=== PATIENT | female | born 1985 | race African-American/Black ===

== ENCOUNTER 2016-12-03 06:42 | Inpatient (IN) | payer OTHER ==
[2016-12-03] MEDS ORDERED: NUBAIN INJ 200 MG VIAL MULTIDOSE IVP PRN (06:44)
[2016-12-03] MEDS ORDERED: PITOCIN IVP ONE (06:44)
[2016-12-03] MEDS ORDERED: PITOCIN 10 UNITS in D5 LR 1000 ML 1,000 ML IV PRN (06:44)
[2016-12-03] MEDS ORDERED: REGLAN INJ 10 MG VIAL IVP PRN (06:44)
[2016-12-03] MEDS ORDERED: DILAUDID INJ IVP PRN (06:44)
[2016-12-03] MEDS ORDERED: PHENERGAN INJ 25 MG IV PRN ×2 (06:44→20:13)
[2016-12-03] MEDS ORDERED: D5LR 1000ML W PITOCIN 10 U/L 1,000 ML IV ONE (06:50)
[2016-12-03] MEDS ORDERED: D5 1/2 NS 1000 ML 1,000 ML IV ONE (06:51)
[2016-12-03] MEDS ORDERED: PITOCIN ONE (06:51)
[2016-12-03] MEDS ORDERED: D5 1/2 NS 1000ML W PITOCIN 20 U/L 1,000 ML IV ONE (06:51)
[2016-12-03] MEDS: D5 1/2 NS 1000 ML 1,000 ML IV SCH ×3 (07:10→23:01)
[2016-12-03 07:25] LABS: BASOPHILS % (AUTO) 0.4 % (0.2-1.0); EOSINOPHILS # (AUTO) 0.1 x10^3/uL (0.0-0.2); EOSINOPHILS % (AUTO) 0.6 % (0.9-2.9); HEMATOCRIT 37.9 % (36.0-47.0); HEMOGLOBIN 13.1 g/dL (12.0-16.0); MEAN CORPUSCULAR HEMOGLOBIN 27.8 pg (27.0-34.0); MEAN CORPUSCULAR HGB CONC 34.4 g/dL (33.0-35.0); MEAN CORPUSCULAR VOLUME 80.8 fL (80.0-100.0); MEAN PLATELET VOLUME 7.3 fL (7.4-11.0); MONOCYTES # (AUTO) 0.6 x10^3/uL (0.3-0.8); MONOCYTES % (AUTO) 5.9 % (0.0-13.0); NEUTROPHILS # (AUTO) 8.2 x10^3/uL (2.2-4.8); NEUTROPHILS % (AUTO) 75.1 % (42.0-75.0); PLATELET COUNT 288 X10^3/uL (150.0-450.0); RED BLOOD COUNT 4.69 X10^6/uL (3.5-5.4); RED CELL DISTRIBUTION WIDTH 14.6 % (11.6-16.5); WHITE BLOOD COUNT 10.9 X10^3/uL (3.6-10.0)
[2016-12-03 07:28] LABS: BLOOD UREA NITROGEN 6 mg/dL (7-18); CALCIUM 8.6 mg/dL (8.5-10.1); CARBON DIOXIDE 23.4 mmol/L (21-32); CHLORIDE 105 mmol/L (98-107); CREATININE 0.69 mg/dL (0.55-1.02); GLUCOSE 94 mg/dL (65-99); SODIUM 139 mmol/L (136-145); eGFR BLACK RACES > 60 (>60); eGFR NON BLACK RACES > 60 (>60)
[2016-12-03 07:29] LABS: BILIRUBIN,URINE NEGATIVE (NEGATIVE); BLOOD/HEMOGLOBIN,URINE 1+ (NEGATIVE); GLUCOSE, URINE NEGATIVE (NEGATIVE); KETONES,URINE NEGATIVE (NEGATIVE); LEUKOCYTE ESTERASE ,URINE 2+ (NEGATIVE); NITRITES,URINE NEGATIVE (NEGATIVE); PROTEIN,URINE 1+ (NEGATIVE); UROBILINOGEN,URINE NORMAL (NORMAL)
[2016-12-03 07:37] LABS: APPEARANCE,URINE CLEAR (CLEAR); COLOR,URINE YELLOW (YELLOW)
[2016-12-03 07:38] LABS: BACTERIA,URINE TRACE /HPF (NEGATIVE); RBC,URINE 0-3 /HPF (NEGATIVE); SQUAMOUS EPITHELIAL CELL,UR MODERATE /HPF (NEGATIVE)
--- NOTE | 2016-12-03 10:06 | NB.PROG ---
[facility] Progress Note - History of Present Illness History of Present Illness: thriving - Information Weight: 277 lb - [facility] Blood Type: B+ Rubella Status: Immune HIV Status: Negative Group B Strep Status: Negative - Physical Exam Vital Signs: Temperature 98.0 F Pulse Rate [Left Brachial] 88 Respiratory Rate 18 Blood Pressure [Left Arm] 132/72 Blood Pressure 119/88 [facility] Physical Exam: Head: Normal, Palate: Normal, Fundoscopic: Normal, EENT: Normal, Neck: Normal, Nodes: Normal, Chest: Normal, Cardiac: Normal, Pulses: Normal, Abdominal: Normal, Genitourinary: Normal, Skin: Normal, Musculoskeletal : Normal, Neurological: Normal, Hips: Normal - Review of Results Laboratory: WBC 10.9 X10^3/uL (3.6-10.0) H 12/03/16 07:08 RBC 4.69 X10^6/uL (3.5-5.4) 12/03/16 07:08 Hgb 13.1 g/dL (12.0-16.0) 12/03/16 07:08 Hct 37.9 % (36.0-47.0) 12/03/16 07:08 MCV 80.8 fL (80.0-100.0) 12/03/16 07:08 MCH 27.8 pg (27.0-34.0) 12/03/16 07:08 MCHC 34.4 g/dL (33.0-35.0) 12/03/16 07:08 RDW 14.6 % (11.6-16.5) 12/03/16 07:08 Plt Count 288 X10^3/uL (150.0-450.0) 12/03/16 07:08 MPV 7.3 fL (7.4-11.0) L 12/03/16 07:08 Neut % 75.1 % (42.0-75.0) H 12/03/16 07:08 Lymph % 18.0 % (21.0-51.0) L 12/03/16 07:08 [place] % 5.9 % (0.0-13.0) 12/03/16 07:08 Eos % 0.6 % (0.9-2.9) L 12/03/16 07:08 Baso % 0.4 % (0.2-1.0) 12/03/16 07:08 Neut # 8.2 x10^3/uL (2.2-4.8) H 12/03/16 07:08 Lymph # 2.0 X10^3/uL (1.3-2.9) 12/03/16 07:08 [place] # 0.6 x10^3/uL (0.3-0.8) 12/03/16 07:08 Eos # 0.1 x10^3/uL (0.0-0.2) 12/03/16 07:08 Baso # 0.0 X10^3/uL (0.0-0.1) 12/03/16 07:08 Absolute Nucleated RBC 0.0 /100WBC 12/03/16 07:08 Sodium 139 mmol/L (136-145) 12/03/16 07:08 Corrected Sodium TNP 12/03/16 07:08 Potassium 4.3 mmol/L (3.5-5.1) 12/03/16 07:08 Chloride 105 mmol/L (98-107) 12/03/16 07:08 Carbon Dioxide 23.4 mmol/L (21-32) 12/03/16 07:08 BUN 6 mg/dL (7-18) L 12/03/16 07:08 Creatinine 0.69 mg/dL (0.55-1.02) 12/03/16 07:08 Est GFR (MDRD) Af Amer > 60 (>60) 12/03/16 07:08 Est GFR (MDRD) Non-Af > 60 (>60) 12/03/16 07:08 Glucose 94 mg/dL (65-99) 12/03/16 07:08 Calcium 8.6 mg/dL (8.5-10.1) 12/03/16 07:08 Specimen Type Clean catch urine 12/03/16 07:05 Urine Color Yellow (YELLOW) 12/03/16 07:05 Urine Appearance Clear (CLEAR) 12/03/16 07:05 Urine pH 7.0 (5.0 - 8.0) 12/03/16 07:05 Ur Specific [place] 1.010 (1.000-1.030) 12/03/16 07:05 Urine Protein 1+ (NEGATIVE) 12/03/16 07:05 Urine Glucose (UA) Negative (NEGATIVE) 12/03/16 07:05 Urine Ketones Negative (NEGATIVE) 12/03/16 07:05 Urine Occult Blood 1+ (NEGATIVE) 12/03/16 07:05 Urine Nitrite Negative (NEGATIVE) 12/03/16 07:05 Urine Bilirubin Negative (NEGATIVE) 12/03/16 07:05 Urine Urobilinogen Normal (NORMAL) 12/03/16 07:05 Ur Leukocyte Esterase 2+ (NEGATIVE) 12/03/16 07:05 Urine RBC 0-3 /HPF (NEGATIVE) 12/03/16 07:05 Urine WBC 2-5 /HPF (NEGATIVE) 12/03/16 07:05 Ur Squamous Epith Cells Moderate /HPF (NEGATIVE) 12/03/16 07:05 Urine Bacteria Trace /HPF (NEGATIVE) 12/03/16 07:05 Ur Culture Indicated? No/not indicated 12/03/16 07:05 RPR Nonreactive (NONREACTIVE) 12/03/16 07:08 Blood Type B POSITIVE 12/03/16 07:08 Antibody Screen Negative 12/03/16 07:08
[2016-12-03] MEDS ORDERED: FENTANYL INJ 100 mcg EPI ONE (10:26)
[2016-12-03] MEDS ORDERED: LR 1000 ML IV 1,000 ML IV ONE (10:26)
[2016-12-03] MEDS ORDERED: NAROPIN EPIDURAL 0.2% 60 ML with FENTANYL INJ 100 mcg 90 MCG IVP SCH ×2 (11:00)
[2016-12-03] MEDS ORDERED: NAROPIN EPIDURAL 0.2% + FENTANYL 90MCG EPI SCH (11:00)
[2016-12-03] MEDS ORDERED: NAROPIN EPIDURAL 0.2% + FENTANYL 90MCG 60 ML EPI ONE (16:30)
[2016-12-03] MEDS ORDERED: REGLAN INJ 10 MG VIAL ONE (17:49)
[2016-12-03] MEDS ORDERED: MOTRIN TAB 800 MG PO PRN (20:13)
[2016-12-03] MEDS ORDERED: D5 1/2 NS 1000 ML 1,000 ML with PITOCIN 20 UNITS IV SCH ×2 (21:00)
[2016-12-03] MEDS ORDERED: NS 1000 ML 1,000 ML IV ONE (21:04)
[2016-12-03] MEDS ORDERED: DERMOPLAST SPRAY TOP PRN (21:26)
[2016-12-03] MEDS ORDERED: AMBIEN PO PRN (21:26)
[2016-12-03] MEDS ORDERED: MILK OF MAGNESIA PO PRN (21:26)
[2016-12-03] MEDS ORDERED: NS 1000 ML 1,000 ML ONE (21:27)
[2016-12-03] MEDS: MOTRIN TAB 800 MG PO PRN (22:00)
[2016-12-03] MEDS: ZANTAC PO SCH (22:08)
[2016-12-04] MEDS ORDERED: D5 1/2 NS 1000 ML 1,000 ML with PITOCIN 20 UNITS IV SCH ×2 (05:00)
[2016-12-04] MEDS: D5 1/2 NS 1000 ML 1,000 ML IV SCH (06:09)
[2016-12-04 06:32] LABS: HEMATOCRIT 29.8 % (36.0-47.0); HEMOGLOBIN 10.1 g/dL (12.0-16.0)
[2016-12-04] MEDS: ZANTAC PO SCH ×2 (09:19→20:02)
[2016-12-04] MEDS: PRENATAL PLUS PO SCH (09:19)
[2016-12-04] MEDS: MOTRIN TAB 800 MG PO PRN ×2 (11:32→20:03)
[2016-12-05 07:42] VITALS: BP 112/57
[2016-12-05] MEDS: ZANTAC PO SCH (08:32)
[2016-12-05] MEDS: PRENATAL PLUS PO SCH (08:32)
[2016-12-05] MEDS: MOTRIN TAB 800 MG PO PRN (10:47)
== END 2016-12-05 12:00 | disposition home or self-care (01) | DRG 775 ==
LOC: LD 06:42 → MED/SURG 21:35
PROVIDERS: ADMIT Obstetrics & Gynecology Obstetrics; ATTEND Obstetrics & Gynecology Obstetrics
PROC: 10E0XZZ Delivery of Products of Conception, External Approach (ICD-10-PCS; principal; 2016-12-03)
PROC: 10907ZC Drainage of Amniotic Fluid, Therapeutic from Products of Conception, Via Natural or Artificial Opening (ICD-10-PCS; 2016-12-03)
PROC: 3E033VJ Introduction of Other Hormone into Peripheral Vein, Percutaneous Approach (ICD-10-PCS; 2016-12-03)
PROC: 00HU33Z Insertion of Infusion Device into Spinal Canal, Percutaneous Approach (ICD-10-PCS; 2016-12-03)
DX: O34.219 Maternal care for unspecified type scar from previous cesarean delivery (principal); Z37.0 Single live birth; N85.8 Other specified noninflammatory disorders of uterus; Z3A.39 39 weeks gestation of pregnancy
CPT/HCPCS: 09167; 36415; 59612; 80048; 81001; 85014; 85018; 85025; 86592; 86850; 86900; 86901; A4216; A4222; S0197; J2590; J2765; J3010; J7042; J7120

== ENCOUNTER → 2017-01-14 | Day surgery (SDC) | payer OTHER ==
[~2017-01-14] MED LIST: ANCEF VIAL 1 GM ONE; BENADRYL INJ 50 MG VIAL IVP PRN; DEMEROL INJ ONE; DILAUDID INJ IVP PRN; DIPRIVAN VIAL ONE; DYLOJECT INJ IVP ONE; DYLOJECT INJ ONE; FENTANYL INJ 100 mcg ONE; FENTANYL INJ 250 mcg ONE; LR 1000 ML IV 1,000 ML IV ONE; NEOSTIGMINE INJ ONE; NORCURON INJ 10 MG VIAL ONE; NS 1000 ML 1,000 ML ONE; PHENERGAN INJ 25 MG IVP PRN; QUELICIN (OR ANECTINE) ONE; REGLAN INJ 10 MG VIAL IVP PRN; REGLAN INJ 10 MG VIAL ONE; ROBINUL ONE; SUPRANE IN ONE; VERSED ONE; XYLOCAINE 2 % (PLAIN) ONE; ZOFRAN INJ 4 MG VIAL IVP PRN; ZOFRAN INJ 4 MG VIAL ONE
[2017-01-14] MEDS: NS 50 ML IV + SPIKE MINIBAG* 50 ML IV ONE ×2 (07:20→07:45)
[2017-01-14 07:32] LABS: BASOPHILS % (AUTO) 0.6 % (0.2-1.0); EOSINOPHILS # (AUTO) 0.1 x10^3/uL (0.0-0.2); EOSINOPHILS % (AUTO) 1.2 % (0.9-2.9); HEMATOCRIT 36.9 % (36.0-47.0); HEMOGLOBIN 12.3 g/dL (12.0-16.0); LYMPHOCYTES # (AUTO) 2.2 X10^3/uL (1.3-2.9); MEAN CORPUSCULAR HEMOGLOBIN 26.3 pg (27.0-34.0); MEAN CORPUSCULAR HGB CONC 33.4 g/dL (33.0-35.0); MEAN CORPUSCULAR VOLUME 78.8 fL (80.0-100.0); MEAN PLATELET VOLUME 7.7 fL (7.4-11.0); MONOCYTES # (AUTO) 0.5 x10^3/uL (0.3-0.8); MONOCYTES % (AUTO) 6.4 % (0.0-13.0); NEUTROPHILS # (AUTO) 5.2 x10^3/uL (2.2-4.8); NEUTROPHILS % (AUTO) 64.8 % (42.0-75.0); PLATELET COUNT 349 X10^3/uL (150.0-450.0); RED BLOOD COUNT 4.69 X10^6/uL (3.5-5.4)
[2017-01-14 07:39] LABS: ALANINE AMINOTRANSFERASE 48 Units/L (12-78); ALBUMIN 2.7 g/dL (3.4-5.0); ALKALINE PHOSPHATASE 91 Units/L (46-116); ASPARTATE AMINO TRANSFERASE 29 Units/L (15-37); BLOOD UREA NITROGEN 16 mg/dL (7-18); CALCIUM 8.7 mg/dL (8.5-10.1); CARBON DIOXIDE 28.5 mmol/L (21-32); CHLORIDE 108 mmol/L (98-107); COR CA(FOR HYPOALB) 9.7 mg/dL (8.5-10.1); CREATININE 1.06 mg/dL (0.55-1.02); GLUCOSE 96 mg/dL (65-99); SODIUM 144 mmol/L (136-145); eGFR BLACK RACES > 60 (>60); eGFR NON BLACK RACES > 60 (>60)
[2017-01-14 07:46] LABS: SERUM PREGNANCY TEST, QUAL NEGATIVE <10 mIU/mL
[2017-01-14 12:08] VITALS: BP 121/58
== END | disposition home or self-care (01) | DRG 743 ==
LOC: SURG1 06:38
PROVIDERS: ATTEND Obstetrics & Gynecology Obstetrics
PROC: 0UB64ZX Excision of Left Fallopian Tube, Percutaneous Endoscopic Approach, Diagnostic (ICD-10-PCS; 2017-01-14)
PROC: 0U574ZZ Destruction of Bilateral Fallopian Tubes, Percutaneous Endoscopic Approach (ICD-10-PCS; principal; 2017-01-14 07:30)
DX: Z30.2 Encounter for sterilization (principal); N83.8 Other noninflammatory disorders of ovary, fallopian tube and broad ligament
CPT/HCPCS: 36415; 80053; 84703; 85025; A4216; A4222; J0330; J0690; J2001; J2175; J2250; J2405; J2710; J2765; J3010; J3490; J7120

== ENCOUNTER 2017-11-29 12:49 | Inpatient (IN) | payer OTHER ==
[2017-11-29] MEDS ORDERED: VANCOMYCIN HCL 1 GM VIAL 1 GM in D5W 250 ML IV 250 ML IV ONE ×2 (13:17→17:00)
[2017-11-29] MEDS ORDERED: BACTROBAN OINT TOP ONE (13:18)
[2017-11-29] MEDS ORDERED: LR 1000 ML IV 1,000 ML IV SCH (14:00)
[2017-11-29] MEDS ORDERED: BACTROBAN CREAM ONE (15:11)
[2017-11-29 15:22] LABS: ALANINE AMINOTRANSFERASE 27 Units/L (12-78); ALBUMIN 2.3 g/dL (3.4-5.0); ALKALINE PHOSPHATASE 105 Units/L (46-116); ASPARTATE AMINO TRANSFERASE 18 Units/L (15-37); BLOOD UREA NITROGEN 9 mg/dL (7-18); CALCIUM 8.7 mg/dL (8.5-10.1); CARBON DIOXIDE 28.7 mmol/L (21-32); CHLORIDE 101 mmol/L (98-107); COR CA(FOR HYPOALB) 10.1 mg/dL (8.5-10.1); CREATININE 0.86 mg/dL (0.55-1.02); SODIUM 137 mmol/L (136-145); TOTAL PROTEIN 7.3 g/dL (6.4-8.2); eGFR BLACK RACES > 60 (>60); eGFR NON BLACK RACES > 60 (>60)
[2017-11-29 15:35] LABS: BASOPHILS % (AUTO) 0.4 % (0.2-1.0); EOSINOPHILS # (AUTO) 0.1 x10^3/uL (0.0-0.2); HEMATOCRIT 32.9 % (36.0-47.0); HEMOGLOBIN 11.3 g/dL (12.0-16.0); LYMPHOCYTES # (AUTO) 1.4 X10^3/uL (1.3-2.9); MEAN CORPUSCULAR HEMOGLOBIN 28.3 pg (27.0-34.0); MEAN CORPUSCULAR HGB CONC 34.2 g/dL (33.0-35.0); MEAN CORPUSCULAR VOLUME 82.7 fL (80.0-100.0); MEAN PLATELET VOLUME 6.7 fL (7.4-11.0); MONOCYTES # (AUTO) 0.6 x10^3/uL (0.3-0.8); MONOCYTES % (AUTO) 5.2 % (0.0-13.0); NEUTROPHILS # (AUTO) 8.8 x10^3/uL (2.2-4.8); NEUTROPHILS % (AUTO) 80.4 % (42.0-75.0); PLATELET COUNT 772 X10^3/uL (150.0-450.0); RED BLOOD COUNT 3.98 X10^6/uL (3.5-5.4); RED CELL DISTRIBUTION WIDTH 16.1 % (11.6-16.5); WHITE BLOOD COUNT 10.9 X10^3/uL (3.6-10.0)
[2017-11-29 15:42] LABS: PLATELET MORPHOLOGY COMMENT NORMAL (NORMAL)
[2017-11-29] MEDS: NORCO 10/325 TAB PO PRN (16:19)
[2017-11-29] MEDS: LR 1000 ML IV 1,000 ML IV SCH (16:20)
[2017-11-29] MEDS: ZOFRAN INJ 4 MG VIAL IVP PRN (16:20)
[2017-11-29] MEDS: COLACE CAP 100 MG PO SCH ×2 (16:22→21:05)
[2017-11-29] MEDS: MILK OF MAGNESIA PO SCH ×2 (16:22→21:05)
[2017-11-29 17:19] VITALS: BMI 39.2
[2017-11-29] MEDS: MOTRIN TAB 600 MG PO PRN (20:00)
[2017-11-30] MEDS: NORCO 10/325 TAB PO PRN ×2 (00:10→19:30)
[2017-11-30] MEDS: LR 1000 ML IV 1,000 ML IV SCH ×4 (00:22→19:53)
[2017-11-30] MEDS: MOTRIN TAB 600 MG PO PRN ×2 (06:21→20:56)
[2017-11-30] MEDS ORDERED: DILAUDID INJ IVP PRN ×2 (08:17→08:18)
[2017-11-30] MEDS: CIPRO IV 400 MG PREMIX* 400 MG/200 ML IV.SOLN. IV SCH ×2 (08:48→20:55)
[2017-11-30] MEDS ORDERED: PHARMACY CONSULT - VANCOMYCIN XX SCH (11:00)
[2017-11-30] MEDS: VANCOMYCIN HCL 1 GM VIAL 1 GM in D5W 250 ML IV 250 ML IV SCH ×2 (13:36→22:45)
[2017-11-30] MEDS: PHENERGAN INJ 25 MG IV PRN (15:00)
--- NOTE | 2017-11-30 15:09 | RAD ---
HISTORY: Nausea and vomiting, history of surgery 1 month ago, wound infection Study: Two views of the chest and abdomen Comparison: None Findings: There is platelike atelectasis in the lung bases. No infiltrate, effusion or pneumothorax identified. Cardiac silhouette is normal. No gross pneumoperitoneum identified. No evidence of bowel obstruction . No abnormal soft tissue calcification or masses are identified. The osseous structures are unremark able. IMPRESSION: 1. Bibasilar atelectasis. 2. No evidence of acute abdominal pathology. Reported By:
[2017-11-30] MEDS: COLACE CAP 100 MG PO SCH (21:00)
[2017-11-30] MEDS: BACTROBAN OINT TOP SCH (21:00)
[2017-11-30] MEDS: MILK OF MAGNESIA PO SCH (21:00)
[2017-12-01] MEDS: MOTRIN TAB 600 MG PO PRN (04:30)
[2017-12-01] MEDS: LR 1000 ML IV 1,000 ML IV SCH ×3 (04:59→17:24)
[2017-12-01] MEDS: BACTROBAN OINT TOP SCH ×3 (05:03→22:00)
[2017-12-01 05:22] LABS: BASOPHILS # (AUTO) 0.1 X10^3/uL (0.0-0.1); BASOPHILS % (AUTO) 0.9 % (0.2-1.0); EOSINOPHILS # (AUTO) 0.2 x10^3/uL (0.0-0.2); EOSINOPHILS % (AUTO) 2.4 % (0.9-2.9); HEMATOCRIT 32.6 % (36.0-47.0); LYMPHOCYTES % (AUTO) 28.3 % (21.0-51.0); MEAN CORPUSCULAR HEMOGLOBIN 27.6 pg (27.0-34.0); MEAN CORPUSCULAR HGB CONC 33.7 g/dL (33.0-35.0); MEAN CORPUSCULAR VOLUME 81.8 fL (80.0-100.0); MEAN PLATELET VOLUME 6.5 fL (7.4-11.0); MONOCYTES # (AUTO) 0.5 x10^3/uL (0.3-0.8); MONOCYTES % (AUTO) 6.6 % (0.0-13.0); NEUTROPHILS # (AUTO) 4.4 x10^3/uL (2.2-4.8); NEUTROPHILS % (AUTO) 61.8 % (42.0-75.0); PLATELET COUNT 641 X10^3/uL (150.0-450.0); RED BLOOD COUNT 3.99 X10^6/uL (3.5-5.4); RED CELL DISTRIBUTION WIDTH 16.5 % (11.6-16.5); WHITE BLOOD COUNT 7.1 X10^3/uL (3.6-10.0)
[2017-12-01 05:37] LABS: ALANINE AMINOTRANSFERASE 20 Units/L (12-78); ALKALINE PHOSPHATASE 91 Units/L (46-116); ASPARTATE AMINO TRANSFERASE 17 Units/L (15-37); BLOOD UREA NITROGEN 3 mg/dL (7-18); CALCIUM 8.3 mg/dL (8.5-10.1); CARBON DIOXIDE 27.8 mmol/L (21-32); CHLORIDE 104 mmol/L (98-107); COR CA(FOR HYPOALB) 9.9 mg/dL (8.5-10.1); CREATININE 0.67 mg/dL (0.55-1.02); MAGNESIUM 2.1 mg/dL (1.7-2.9); SODIUM 138 mmol/L (136-145); TOTAL PROTEIN 6.7 g/dL (6.4-8.2); eGFR BLACK RACES > 60 (>60); eGFR NON BLACK RACES > 60 (>60)
[2017-12-01 05:52] LABS: PLATELET MORPHOLOGY COMMENT NORMAL (NORMAL)
[2017-12-01] MEDS: VANCOMYCIN HCL 1 GM VIAL 1 GM in D5W 250 ML IV 250 ML IV SCH ×3 (06:09→22:00)
[2017-12-01] MEDS: CIPRO IV 400 MG PREMIX* 400 MG/200 ML IV.SOLN. IV SCH ×2 (08:15→20:35)
[2017-12-01] MEDS: NORCO 10/325 TAB PO PRN ×2 (08:17→15:34)
[2017-12-01] MEDS: DILAUDID INJ IVP PRN ×2 (10:24→20:40)
[2017-12-01] MEDS: PHENERGAN INJ 25 MG IV PRN ×2 (10:28→20:41)
[2017-12-01] MEDS ORDERED: PHARMACY COMMENT IV NR (14:00)
[2017-12-01] MEDS: ZOFRAN INJ 4 MG VIAL IVP PRN (15:34)
[2017-12-01] MEDS: COLACE CAP 100 MG PO SCH (20:35)
[2017-12-01] MEDS: MILK OF MAGNESIA PO SCH (20:40)
[2017-12-02] MEDS: NORCO 10/325 TAB PO PRN ×2 (01:22→07:36)
[2017-12-02] MEDS: LR 1000 ML IV 1,000 ML IV SCH ×4 (03:19→18:31)
[2017-12-02] MEDS: DILAUDID INJ IVP PRN (05:39)
[2017-12-02] MEDS: VANCOMYCIN HCL 1 GM VIAL 1 GM in D5W 250 ML IV 250 ML IV SCH ×3 (05:40→23:15)
[2017-12-02] MEDS: BACTROBAN OINT TOP SCH ×3 (05:40→23:15)
[2017-12-02] MEDS: PHENERGAN INJ 25 MG IV PRN (05:40)
[2017-12-02] MEDS: MOTRIN TAB 600 MG PO PRN (10:11)
[2017-12-02] MEDS: CIPRO IV 400 MG PREMIX* 400 MG/200 ML IV.SOLN. IV SCH ×2 (10:11→20:33)
[2017-12-02] MEDS ORDERED: QUELICIN (OR ANECTINE) ONE (13:21)
[2017-12-02] MEDS: MORPHINE SULFATE INJ 2 MG INJ IVP PRN (14:05)
[2017-12-02] MEDS: ZOFRAN INJ 4 MG VIAL IVP PRN (14:07)
[2017-12-02] MEDS ORDERED: NS 100 ML IV 100 ML IV ONE (16:34)
[2017-12-02] MEDS: PERCOCET TAB 5/325 MG PO PRN (20:35)
[2017-12-02] MEDS: MILK OF MAGNESIA PO SCH (20:38)
[2017-12-02] MEDS: COLACE CAP 100 MG PO SCH (20:38)
[2017-12-02 23:22] LABS: CREATININE 0.73 mg/dL (0.55-1.02); VANCOMYCIN,TROUGH 13.5 ug/mL (15-20)
[2017-12-03] MEDS: MORPHINE SULFATE INJ 2 MG INJ IVP PRN ×2 (02:54→21:36)
[2017-12-03] MEDS: LR 1000 ML IV 1,000 ML IV SCH ×3 (04:26→17:08)
--- NOTE | 2017-12-03 04:48 | CT ---
CT chest with contrast CT abdomen and pelvis with contrast Indication: Abscess with dehiscence from recent liposuction in October Technique: Helical images through the chest, abdomen and pelvis after IV contrast. Coronal and sagitt al reformats provided. Findings: Review of bone windows shows no destructive osseous lesion. CT chest: Aortic arch and branch vessels are normal. Pulmonary arteries are normal. Heart size is nor mal. There is no pneumothorax or effusion. There is no consolidation. Minimal dependent atelectasis n oted. There is gas adjacent to the pectoralis muscles see axial image 45 through 31 comment deep to the sub cutaneous breast fat tissue and tracking into the subcutaneous fat tissue along scar, presumably barby g the surgical scar. CT abdomen and pelvis: There is subcutaneous edema along the anterior abdominal wall and seen depende ntly on the posterior abdomen. Presumably this related to prior surgery. There is thickening of the r ectus abdominis muscles, with fat interposed between the muscles and soft tissue density. Small perip herally enhancing rounded area centrally is noted. This is not just above the umbilicus. There is adj acent surrounding fat. This soft tissue density measures 2.1 x 1.8 cm on axial image 67. Small absces s is possible. Mesh performed body might appear similarly. Superficial to the abdominal muscles there is 5.6 x 1.2 cm on axial image 65 noted. The liver, spleen, pancreas, adrenal glands, pancreas, stomach, small bowel, and colon are normal. Th e appendix is normal. The kidneys are normal. Vasculature is normal. Pelvis: The urinary bladder and rectum are normal. The uterus and adnexa are normal. Impression: 1. Subcutaneous gas the deep to the breast subcutaneous soft tissue and superficial to the pectoralis muscles along the surgical incision most likely. This could reflect active infection. Correlate clin ically for signs of gas-forming organisms versus dehiscence of the wound. 2. Subcutaneous soft tissue stranding and unusual thickening of the rectus abdominis muscle with cent ral fat and soft tissue density. This is just below the emboli kiss and patchy enhance between the re ctus abdominis muscles. This could represent a retained foreign body or abscess. Clinical correlation and surgical follow-up recommended. 3. No other acute abnormality seen. Reported By:
[2017-12-03 06:22] LABS: BASOPHILS % (AUTO) 0.8 % (0.2-1.0); EOSINOPHILS # (AUTO) 0.2 x10^3/uL (0.0-0.2); EOSINOPHILS % (AUTO) 3.4 % (0.9-2.9); HEMATOCRIT 30.6 % (36.0-47.0); HEMOGLOBIN 10.4 g/dL (12.0-16.0); LYMPHOCYTES # (AUTO) 1.6 X10^3/uL (1.3-2.9); LYMPHOCYTES % (AUTO) 26.2 % (21.0-51.0); MEAN CORPUSCULAR HEMOGLOBIN 27.5 pg (27.0-34.0); MEAN CORPUSCULAR HGB CONC 33.9 g/dL (33.0-35.0); MEAN CORPUSCULAR VOLUME 81.3 fL (80.0-100.0); MEAN PLATELET VOLUME 6.3 fL (7.4-11.0); MONOCYTES # (AUTO) 0.5 x10^3/uL (0.3-0.8); MONOCYTES % (AUTO) 8.3 % (0.0-13.0); NEUTROPHILS # (AUTO) 3.8 x10^3/uL (2.2-4.8); NEUTROPHILS % (AUTO) 61.3 % (42.0-75.0); PLATELET COUNT 491 X10^3/uL (150.0-450.0); RED BLOOD COUNT 3.77 X10^6/uL (3.5-5.4); RED CELL DISTRIBUTION WIDTH 16.1 % (11.6-16.5); WHITE BLOOD COUNT 6.1 X10^3/uL (3.6-10.0)
[2017-12-03] MEDS: BACTROBAN OINT TOP SCH ×4 (06:23→21:37)
[2017-12-03] MEDS: VANCOMYCIN HCL 1 GM VIAL 1 GM in D5W 250 ML IV 250 ML IV SCH ×3 (06:28→21:36)
[2017-12-03 06:38] LABS: ALANINE AMINOTRANSFERASE 21 Units/L (12-78); ALBUMIN 1.9 g/dL (3.4-5.0); ALKALINE PHOSPHATASE 76 Units/L (46-116); ASPARTATE AMINO TRANSFERASE 15 Units/L (15-37); BLOOD UREA NITROGEN 2 mg/dL (7-18); CALCIUM 8.3 mg/dL (8.5-10.1); CARBON DIOXIDE 28.3 mmol/L (21-32); CHLORIDE 104 mmol/L (98-107); CREATININE 0.67 mg/dL (0.55-1.02); SODIUM 139 mmol/L (136-145); TOTAL PROTEIN 6.1 g/dL (6.4-8.2); eGFR BLACK RACES > 60 (>60); eGFR NON BLACK RACES > 60 (>60)
[2017-12-03] MEDS: CIPRO IV 400 MG PREMIX* 400 MG/200 ML IV.SOLN. IV SCH (08:50)
[2017-12-03] MEDS: PERCOCET TAB 5/325 MG PO PRN (09:05)
[2017-12-03] MEDS: ZOFRAN INJ 4 MG VIAL IVP PRN ×2 (09:27→18:10)
[2017-12-03] MEDS ORDERED: XYLOCAINE 1 % (PLAIN) ONE (09:48)
[2017-12-03] MEDS ORDERED: NS 1000 ML 1,000 ML ONE (09:48)
[2017-12-03] MEDS ORDERED: MARCAINE 0.25% INJ ONE (09:49)
[2017-12-03 10:10] LABS: SERUM PREGNANCY TEST, QUAL NEGATIVE <10 mIU/mL
[2017-12-03] MEDS ORDERED: NS IRRIGATION 1000 ML 1,000 ML with BACITRACIN VIAL 50,000 UNIT IR ONE ×2 (10:55)
[2017-12-03] MEDS ORDERED: FENTANYL INJ 250 mcg ONE (11:09)
[2017-12-03] MEDS ORDERED: DILAUDID INJ ONE (11:51)
[2017-12-03] MEDS ORDERED: BENADRYL INJ 50 MG VIAL IVP PRN (12:02)
[2017-12-03] MEDS ORDERED: REGLAN INJ 10 MG VIAL IVP PRN (12:02)
[2017-12-03] MEDS ORDERED: ZOFRAN INJ 4 MG VIAL IVP PRN (12:02)
[2017-12-03] MEDS ORDERED: DILAUDID INJ IVP PRN (12:02)
[2017-12-03] MEDS: PHENERGAN INJ 25 MG IVP PRN (12:29)
[2017-12-03] MEDS ORDERED: NORCURON INJ 10 MG VIAL ONE (12:53)
[2017-12-03] MEDS ORDERED: XYLOCAINE 2 % (PLAIN) ONE (12:53)
[2017-12-03] MEDS ORDERED: DIPRIVAN VIAL ONE (12:53)
[2017-12-03] MEDS ORDERED: VERSED ONE (12:53)
[2017-12-03] MEDS ORDERED: NEOSTIGMINE INJ ONE (12:53)
[2017-12-03] MEDS ORDERED: ZOFRAN INJ 4 MG VIAL ONE (12:53)
[2017-12-03] MEDS ORDERED: SUPRANE IN ONE (12:53)
[2017-12-03] MEDS: DILAUDID INJ IVP PRN (15:38)
[2017-12-03] MEDS: COLACE CAP 100 MG PO SCH (21:36)
[2017-12-03] MEDS: MILK OF MAGNESIA PO SCH (21:37)
[2017-12-04] MEDS: LR 1000 ML IV 1,000 ML IV SCH ×5 (02:05→21:05)
[2017-12-04] MEDS: MOTRIN TAB 600 MG PO PRN ×2 (03:38→14:44)
[2017-12-04] MEDS: MORPHINE SULFATE INJ 2 MG INJ IVP PRN ×2 (03:38→15:25)
[2017-12-04] MEDS: BACTROBAN OINT TOP SCH ×4 (05:27→21:04)
[2017-12-04] MEDS: VANCOMYCIN HCL 1 GM VIAL 1 GM in D5W 250 ML IV 250 ML IV SCH ×3 (05:28→21:04)
[2017-12-04 06:26] LABS: BASOPHILS % (AUTO) 0.8 % (0.2-1.0); EOSINOPHILS # (AUTO) 0.1 x10^3/uL (0.0-0.2); EOSINOPHILS % (AUTO) 2.5 % (0.9-2.9); HEMATOCRIT 29.8 % (36.0-47.0); HEMOGLOBIN 10.3 g/dL (12.0-16.0); LYMPHOCYTES # (AUTO) 1.1 X10^3/uL (1.3-2.9); LYMPHOCYTES % (AUTO) 19.1 % (21.0-51.0); MEAN CORPUSCULAR HEMOGLOBIN 28.1 pg (27.0-34.0); MEAN CORPUSCULAR HGB CONC 34.5 g/dL (33.0-35.0); MEAN CORPUSCULAR VOLUME 81.3 fL (80.0-100.0); MEAN PLATELET VOLUME 6.6 fL (7.4-11.0); MONOCYTES # (AUTO) 0.3 x10^3/uL (0.3-0.8); MONOCYTES % (AUTO) 5.8 % (0.0-13.0); NEUTROPHILS # (AUTO) 4.3 x10^3/uL (2.2-4.8); NEUTROPHILS % (AUTO) 71.8 % (42.0-75.0); PLATELET COUNT 487 X10^3/uL (150.0-450.0); RED BLOOD COUNT 3.67 X10^6/uL (3.5-5.4); RED CELL DISTRIBUTION WIDTH 15.9 % (11.6-16.5)
[2017-12-04 06:33] LABS: ALANINE AMINOTRANSFERASE 16 Units/L (12-78); ALKALINE PHOSPHATASE 74 Units/L (46-116); ASPARTATE AMINO TRANSFERASE 14 Units/L (15-37); BLOOD UREA NITROGEN 2 mg/dL (7-18); CALCIUM 8.4 mg/dL (8.5-10.1); CARBON DIOXIDE 27.5 mmol/L (21-32); CHLORIDE 104 mmol/L (98-107); CREATININE 0.82 mg/dL (0.55-1.02); SODIUM 138 mmol/L (136-145); TOTAL PROTEIN 6.2 g/dL (6.4-8.2); eGFR BLACK RACES > 60 (>60); eGFR NON BLACK RACES > 60 (>60)
[2017-12-04] MEDS: LEVAQUIN PREMIX IV 750 MG 750 MG/150 ML BAG IV SCH (09:57)
[2017-12-04] MEDS: PERCOCET TAB 5/325 MG PO PRN ×2 (09:57→20:01)
[2017-12-04] MEDS ORDERED: NS 250 ML IV 250 ML IV ONE (10:01)
[2017-12-04 14:37] LABS: CREATININE 0.93 mg/dL (0.55-1.02); VANCOMYCIN,TROUGH 13.8 ug/mL (15-20)
[2017-12-04] MEDS ORDERED: MAALOX or MYLANTA PO PRN (15:34)
[2017-12-04] MEDS: MILK OF MAGNESIA PO SCH (20:00)
[2017-12-04] MEDS: COLACE CAP 100 MG PO SCH (20:00)
[2017-12-05] MEDS: LR 1000 ML IV 1,000 ML IV SCH ×4 (00:04→19:50)
[2017-12-05] MEDS: ZOFRAN INJ 4 MG VIAL IVP PRN ×2 (00:47→09:14)
[2017-12-05] MEDS: MORPHINE SULFATE INJ 2 MG INJ IVP PRN ×2 (00:47→16:25)
[2017-12-05] MEDS: MOTRIN TAB 600 MG PO PRN ×2 (04:00→21:47)
[2017-12-05 06:32] LABS: BASOPHILS # (AUTO) 0.1 X10^3/uL (0.0-0.1); EOSINOPHILS # (AUTO) 0.2 x10^3/uL (0.0-0.2); HEMATOCRIT 32.4 % (36.0-47.0); LYMPHOCYTES # (AUTO) 1.5 X10^3/uL (1.3-2.9); LYMPHOCYTES % (AUTO) 28.9 % (21.0-51.0); MEAN CORPUSCULAR HEMOGLOBIN 27.7 pg (27.0-34.0); MEAN CORPUSCULAR HGB CONC 34.1 g/dL (33.0-35.0); MEAN CORPUSCULAR VOLUME 81.3 fL (80.0-100.0); MEAN PLATELET VOLUME 6.8 fL (7.4-11.0); MONOCYTES # (AUTO) 0.5 x10^3/uL (0.3-0.8); MONOCYTES % (AUTO) 8.8 % (0.0-13.0); NEUTROPHILS % (AUTO) 57.3 % (42.0-75.0); PLATELET COUNT 456 X10^3/uL (150.0-450.0); RED BLOOD COUNT 3.98 X10^6/uL (3.5-5.4); RED CELL DISTRIBUTION WIDTH 16.1 % (11.6-16.5); WHITE BLOOD COUNT 5.2 X10^3/uL (3.6-10.0)
[2017-12-05] MEDS: BACTROBAN OINT TOP SCH ×3 (06:48→21:41)
[2017-12-05 06:49] LABS: ALANINE AMINOTRANSFERASE 16 Units/L (12-78); ALBUMIN 2.1 g/dL (3.4-5.0); ALKALINE PHOSPHATASE 75 Units/L (46-116); ASPARTATE AMINO TRANSFERASE 18 Units/L (15-37); BLOOD UREA NITROGEN 4 mg/dL (7-18); CALCIUM 8.6 mg/dL (8.5-10.1); CARBON DIOXIDE 26.9 mmol/L (21-32); CHLORIDE 103 mmol/L (98-107); COR CA(FOR HYPOALB) 10.1 mg/dL (8.5-10.1); CREATININE 0.78 mg/dL (0.55-1.02); SODIUM 138 mmol/L (136-145); TOTAL PROTEIN 6.5 g/dL (6.4-8.2); eGFR BLACK RACES > 60 (>60); eGFR NON BLACK RACES > 60 (>60)
[2017-12-05] MEDS: VANCOMYCIN HCL 1 GM VIAL 1 GM in D5W 250 ML IV 250 ML IV SCH ×3 (06:49→22:42)
[2017-12-05] MEDS: DILAUDID INJ IVP PRN (09:08)
[2017-12-05] MEDS: LEVAQUIN PREMIX IV 750 MG 750 MG/150 ML BAG IV SCH (09:08)
[2017-12-05] MEDS: PHENERGAN INJ 25 MG IV PRN (11:15)
[2017-12-05] MEDS: PERCOCET TAB 5/325 MG PO PRN ×2 (16:41→22:42)
[2017-12-05 21:05] LABS: CREATININE 0.95 mg/dL (0.55-1.02); VANCOMYCIN,TROUGH 18.4 ug/mL (15-20)
[2017-12-05] MEDS: COLACE CAP 100 MG PO SCH (21:41)
[2017-12-05] MEDS: MILK OF MAGNESIA PO SCH (21:41)
[2017-12-06] MEDS: LR 1000 ML IV 1,000 ML IV SCH ×3 (02:34→19:21)
[2017-12-06] MEDS: BACTROBAN OINT TOP SCH ×3 (05:48→22:41)
[2017-12-06] MEDS: VANCOMYCIN HCL 1 GM VIAL 1 GM in D5W 250 ML IV 250 ML IV SCH ×3 (05:48→22:41)
[2017-12-06] MEDS: PERCOCET TAB 5/325 MG PO PRN ×3 (05:49→20:45)
[2017-12-06 06:31] LABS: BASOPHILS % (AUTO) 0.8 % (0.2-1.0); EOSINOPHILS # (AUTO) 0.2 x10^3/uL (0.0-0.2); EOSINOPHILS % (AUTO) 4.1 % (0.9-2.9); HEMATOCRIT 30.5 % (36.0-47.0); HEMOGLOBIN 10.4 g/dL (12.0-16.0); LYMPHOCYTES # (AUTO) 1.6 X10^3/uL (1.3-2.9); LYMPHOCYTES % (AUTO) 30.7 % (21.0-51.0); MEAN CORPUSCULAR HEMOGLOBIN 27.5 pg (27.0-34.0); MEAN CORPUSCULAR HGB CONC 34.1 g/dL (33.0-35.0); MEAN CORPUSCULAR VOLUME 80.7 fL (80.0-100.0); MEAN PLATELET VOLUME 6.7 fL (7.4-11.0); MONOCYTES # (AUTO) 0.4 x10^3/uL (0.3-0.8); MONOCYTES % (AUTO) 8.5 % (0.0-13.0); NEUTROPHILS # (AUTO) 2.9 x10^3/uL (2.2-4.8); NEUTROPHILS % (AUTO) 55.9 % (42.0-75.0); PLATELET COUNT 445 X10^3/uL (150.0-450.0); RED BLOOD COUNT 3.78 X10^6/uL (3.5-5.4); RED CELL DISTRIBUTION WIDTH 15.7 % (11.6-16.5); WHITE BLOOD COUNT 5.2 X10^3/uL (3.6-10.0)
[2017-12-06 06:49] LABS: ALANINE AMINOTRANSFERASE 16 Units/L (12-78); ALKALINE PHOSPHATASE 66 Units/L (46-116); ASPARTATE AMINO TRANSFERASE 16 Units/L (15-37); BLOOD UREA NITROGEN 3 mg/dL (7-18); CALCIUM 8.4 mg/dL (8.5-10.1); CARBON DIOXIDE 26.9 mmol/L (21-32); CHLORIDE 104 mmol/L (98-107); CREATININE 0.73 mg/dL (0.55-1.02); SODIUM 138 mmol/L (136-145); TOTAL PROTEIN 6.2 g/dL (6.4-8.2); eGFR BLACK RACES > 60 (>60); eGFR NON BLACK RACES > 60 (>60)
[2017-12-06] MEDS: ZOFRAN INJ 4 MG VIAL IVP PRN (08:58)
[2017-12-06] MEDS: MOTRIN TAB 600 MG PO PRN ×2 (08:58→19:22)
[2017-12-06] MEDS: LEVAQUIN PREMIX IV 750 MG 750 MG/150 ML BAG IV SCH (08:59)
[2017-12-06] MEDS: MORPHINE SULFATE INJ 2 MG INJ IVP PRN (08:59)
[2017-12-06] MEDS: PHENERGAN INJ 25 MG IVP PRN (12:25)
[2017-12-06] MEDS: DILAUDID INJ IVP PRN (12:25)
[2017-12-06] MEDS: COLACE CAP 100 MG PO SCH (20:39)
[2017-12-06] MEDS: MILK OF MAGNESIA PO SCH (20:39)
[2017-12-07] MEDS: MORPHINE SULFATE INJ 2 MG INJ IVP PRN (00:03)
[2017-12-07] MEDS: LR 1000 ML IV 1,000 ML IV SCH ×2 (01:00→08:38)
[2017-12-07 04:44] LABS: ALANINE AMINOTRANSFERASE 15 Units/L (12-78); ALBUMIN 1.9 g/dL (3.4-5.0); ALKALINE PHOSPHATASE 63 Units/L (46-116); ASPARTATE AMINO TRANSFERASE 14 Units/L (15-37); BLOOD UREA NITROGEN 4 mg/dL (7-18); CALCIUM 8.3 mg/dL (8.5-10.1); CHLORIDE 104 mmol/L (98-107); CREATININE 0.76 mg/dL (0.55-1.02); SODIUM 138 mmol/L (136-145); TOTAL PROTEIN 6.1 g/dL (6.4-8.2); eGFR BLACK RACES > 60 (>60); eGFR NON BLACK RACES > 60 (>60)
[2017-12-07 04:47] LABS: VANCOMYCIN,TROUGH 19.1 ug/mL (15-20)
[2017-12-07 04:56] LABS: BASOPHILS % (AUTO) 0.8 % (0.2-1.0); EOSINOPHILS # (AUTO) 0.2 x10^3/uL (0.0-0.2); HEMATOCRIT 31.2 % (36.0-47.0); HEMOGLOBIN 10.6 g/dL (12.0-16.0); LYMPHOCYTES # (AUTO) 1.8 X10^3/uL (1.3-2.9); LYMPHOCYTES % (AUTO) 32.5 % (21.0-51.0); MEAN CORPUSCULAR HEMOGLOBIN 27.3 pg (27.0-34.0); MEAN CORPUSCULAR HGB CONC 33.8 g/dL (33.0-35.0); MEAN CORPUSCULAR VOLUME 80.8 fL (80.0-100.0); MEAN PLATELET VOLUME 6.8 fL (7.4-11.0); MONOCYTES # (AUTO) 0.5 x10^3/uL (0.3-0.8); MONOCYTES % (AUTO) 8.9 % (0.0-13.0); NEUTROPHILS # (AUTO) 2.9 x10^3/uL (2.2-4.8); NEUTROPHILS % (AUTO) 53.8 % (42.0-75.0); PLATELET COUNT 436 X10^3/uL (150.0-450.0); RED BLOOD COUNT 3.86 X10^6/uL (3.5-5.4); WHITE BLOOD COUNT 5.5 X10^3/uL (3.6-10.0)
[2017-12-07] MEDS: VANCOMYCIN HCL 1 GM VIAL 1 GM in D5W 250 ML IV 250 ML IV SCH (05:24)
[2017-12-07] MEDS: BACTROBAN OINT TOP SCH (05:54)
[2017-12-07] MEDS: PERCOCET TAB 5/325 MG PO PRN (05:57)
[2017-12-07] MEDS: LEVAQUIN PREMIX IV 750 MG 750 MG/150 ML BAG IV SCH (08:37)
[2017-12-07 12:20] VITALS: BP 124/65
== END 2017-12-07 13:54 | disposition home or self-care (01) | DRG 570 ==
LOC: UNDOADMIN 12:49 → MED/SURG 12:49
PROVIDERS: ADMIT Internal Medicine; ATTEND Internal Medicine
PROC: 0JB70ZZ Excision of Back Subcutaneous Tissue and Fascia, Open Approach (ICD-10-PCS; principal; 2017-12-03 10:00)
DX: N61.1 Abscess of the breast and nipple (principal); L89.103 Pressure ulcer of unspecified part of back, stage 3; L98.428 Non-pressure chronic ulcer of back with other specified severity; T81.4XXA Infection following a procedure, initial encounter; B96.5 Pseudomonas (aeruginosa) (mallei) (pseudomallei) as the cause of diseases classified elsewhere
CPT/HCPCS: 36415; 71260; 74022; 74177; 80053; 80202; 82565; 83605; 83735; 84703; 85025; 87040; 87070; 87075; 87077; 87186; 87205; A4216; A4222; S0020; J0330; J0744; J1170; J1200; J1956; J2001; J2250; J2270; J2405; J2550; J2710; J2765; J3010; J3370; J3490; J7120